=== PATIENT | male | born 1965 | race Caucasian/White ===

== ENCOUNTER 2019-12-01 17:47 | Emergency (ER) | payer BC, SELFPAY ==
[2019-12-01 17:54] VITALS: BP 118/83; PULSE 63; RESP 16; TEMP 36.3; O2SAT 100
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
[2019-12-01] MEDS: HYDROcodone 5/Acetaminophen 325 TAB PO (18:25)
[2019-12-01] MEDS: Cyclobenzaprine 10 MG TAB PO (18:25)
[2019-12-01] MEDS: Ondansetron O.D.T. 4 MG TABEF PO (18:26)
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
--- NOTE | 2019-12-01 19:54 | NUR.NOTE ---
IV placed for CT. reports pain 5/10, tolerable at thistime.
[2019-12-01 19:58] LABS: Anion Gap 8.7 mmol/L (3-11); BUN 19 mg/dL (7-18); CO2 26.3 mmol/L (21.0-32.0); Calcium 9.1 mg/dL (8.5-10.1); Chloride 104 mmol/L (98-107); Estimated GFR 57.97 (mL/min/1.73m2); Glucose 219 mg/dL (74-106); Potassium 4.7 mmol/L (3.5-5.1); Sodium 139 mmol/L (136-145)
[2019-12-01] MEDS: HYDROmorphone 2 MG/ML VIAL 1 MG IVP (20:43)
[2019-12-01] MEDS: Normal Saline Flush 10 ML SYR IVP (20:44)
[2019-12-01] MEDS: Normal Saline - Diluent 50 ML VIAL IV (20:45)
[2019-12-01 20:46] VITALS: BP 120/81; PULSE 55; O2SAT 100
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
== END 2019-12-01 21:40 | disposition home or self-care (01) ==
PROVIDERS: Emergency Provider Registered Nurse Emergency
DX: S42.021A Displaced fracture of shaft of right clavicle, initial encounter for closed fracture (principal); S22.5XXA Flail chest, initial encounter for closed fracture; S42.141A Displaced fracture of glenoid cavity of scapula, right shoulder, initial encounter for closed fracture; V18.0XXA Pedal cycle driver injured in noncollision transport accident in nontraffic accident, initial encounter; Y93.55 Activity, bike riding
CPT/HCPCS: 23500; 36415; 80048; 96374; 99283; 71046; 71100; 71260; 73030; 99282; L3670